=== PATIENT | male | born 1995 | race Caucasian/White ===

== ENCOUNTER 2024-09-29 19:59 | Emergency (ER) | payer OTHER, SELFPAY ==
--- OUTSIDE RECORDS SUMMARY | 2024-09-29 20:02 | XMS_ITS | Clinical Summary ---
Author Organization [facility] Address [address], [place] [address] Care Team Providers Care Rn Progressive Care Unit Name Role Phone Unavailable Primary Care Provider Unavailabl e Source Comments You are receiving this document as you are listed as the primary care provider,follow-up provider, or the patient has been referred to you for consultation.This is in compliance with the Medicare and[facility],which states Providers who transition their patient to another setting of careor provider of care or refers their patient to another provider of care shouldprovide summary care record for each transition of care or referral. [facility] Allergies Active Allergy Reactions Criticality Noted Date Comments Other 07/24/2003 PN: LW Other1: -nka Review Contrast Media 07/24/2003 PN: LW CM1: Contrast Adverse Reaction - None Reaction : Review Food Intolerance 07/24/2003 PN: LW FI1: nka Medications montelukast (SINGULAIR) 10 MG tabletIndications :Mild persistent asthma without complication (HRC),Allergic rhinitis, unspecified seasonality, unspecified trigger TAKE 1 TABLET BY MOUTH EVERY EVENING 90 Tablet 2 2 Active ALBUterol sulfate HFA 108 (90 Base) MCG/ACT inhalerIndication s:Mild persistent asthma without complication (HRC) INHALE 1-2 PUFFS EVERY 6 HOURS NEEDED FOR WHEEZING. 3 Each 3 Active Active Problems Problem Noted Date Diagnosed Date Asthma 02/12/2011 Overview (01/21/2017): Unspecified asthma(493.90) ([facility]) Asthma 11/16/2008 Overview (01/21/2017): LW Modifier: Trigger:Chlorine,URI,?smoke. ; Asthma Mild Intermittant Resolved Problems Problem Noted Date Diagnosed Date Resolved Date Varicella 05/29/2004 07/29/2004 Overview (01/21/2017): LW Modifier: [facility] - Paper Chart LW Onset: [id number] ; Varicella Zoster Immunizations Immunization Administration Dates Next Due DTP 04/06/1998 DTaP 2002,02/09/1998,1997 DTaP/Hib 01/17/1999 Flu Vac Preserv Free (3+yrs) 03/07/2010,03/12/20 09,07/20/2006 H1n1 Miv Sanofi 3+ Yr (Injected) 03/24/2009 HepA Ped/Adol (1-18 yrs) 08/30/2010,11/16/2008 HepA Ped/Adol 3 Dose Series (Not Used in [place]) 08/30/2010 HepB Adult (Engerix-B, 20+ y rs, 3 dose series) 08/03/1998,02/09/1998,1997 Hib (ActHIB) 04/06/1998,02/09/1998,1997 IPV (Polio) 2002, 9,02/09/1998,1997 Influenza (Fluzone 0.25, 6-35 mos) 03/28/2013 Influenza IIV4 (Quadrivalent ) 0.5mL (15649) 03/28/2013 Influenza, Unspecified Formulation 03/07/2010,,07/20/2006 MCV4 (Menactra) 11/16/2008 MMR 2002,01/17/1999 MPSV4 (Menomune) 11/16/2008 TDAP (BOOSTRIX) 11/16/2008 Varicella 05/14/2000 Family History Relation Name Status Comments Father Alive Mother Alive Social History Tobacco Use Types Packs/Day Years Used Date Smoking Tobacco: Never Smokeless Tobacco: Never Alcohol Use Standard Drinks/Week Comments Yes 0 (1 standard drink = 0.6 oz pur e alcohol) PHQ-2 Answer Date Recorded PHQ-2 Score 0 12/30/2021 Sex and Gender Information Value Date Recorded Sex Assigned at Not on file Legal Sex Male 10:32 AM CDT Gender Identity Not on file Sexual Orientation Not on file Last Filed Vital Signs Vital Sign Reading Time Taken Comments Blood Pressure 86/67 12/30/2021 6:06 PM CDT Pulse 70 12/30/2021 6:06 PM CDT Temperature 36.8 C (98.2 F) 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 Respiratory Rate 16 12/30/2021 6:06 PM CDT Oxygen Saturation 97% 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 Inhaled Oxygen Concentration - - Weight 95.3 kg (210 lb) 12/30/2021 6:06 PM CDT Height 186.7 cm (6' 1.5) 12/30/2021 6:06 PM CDT Body Mass Index 27.33 12/30/2021 6:06 PM CDT Plan of Treatment Health Maintenance Due Date Last Done Comments Hep C Screening (Preventive Services) 1997 Varicella Vaccine (2 of 2 - 2-dose childhood series) 2001 05/14/2000 HPV Vaccine (1 - Male 3-dose series) 2012 HIV Screening (Preventive Services) 2013 Pneumococcal Vaccine (1 of 2 - PCV) 2016 DTaP/Tdap/Td Vaccine (7 - Tdap) 11/16/2018 11/16/2008, 2002, 01/17/1999, Additional history exists Asthma ACT (score of 20 or higher) 08/01/2021 08/01/2020 Adult Preventive Visit 08/01/2022 08/01/2020 COVID-19 Vaccine ( season) 2024 Influenza Vaccine (Season Ended) 2025 03/28/2013, 03/28/2013, 03/07/2010, Additional history exists Zoster/Shingles Vaccine (1 of 2) 10/05/2047 HepB Vaccine Completed 08/03/1998, 01/30, 1997 Hib Vaccine Completed 01/17/1999, 10/1997, 02/09/1998, Additional history exists IPV (Polio) Vaccine Completed 2002, 01/17/1999, 02/09/1998, Additional history exists MCV4 Vaccine Aged Out 11/16/2008, 11/16/2008 No lo nger eligible based on patient's age to complete this topic HepA Vaccine Completed 08/30/2010, 11/16/2008 Meningococcal B Vaccine Aged Out No l onger eligible based on patient's age to complete this topic Insurance [facility]
[2024-09-29 20:05] VITALS: BP 127/73; PULSE 96; RESP 20; TEMP 38.1; O2SAT 92; BMI 25.7
[2024-09-29 20:15] VITALS: O2SAT 91
--- OUTSIDE RECORDS SUMMARY | 2024-09-29 20:43 | XMS_ITS | Clinical Summary ---
Author Organization [facility] Address [address], [place] [address] Care Team Providers Care Floral Specialist Name Role Phone Unavailable Primary Care Provider Unavailabl e Source Comments You are receiving this document as you are listed as the primary care provider,follow-up provider, or the patient has been referred to you for consultation.This is in compliance with the Medicare and[facility],which states Providers who transition their patient to another setting of careor provider of care or refers their patient to another provider of care shouldprovide summary care record for each transition of care or referral. [facility] Allergies Active Allergy Reactions Criticality Noted Date [...] Date Asthma 02/12/2011 Overview (01/21/2017): Unspecified asthma(493.90) ([facility]) Asthma 11/16/2008 Overview (01/21/2017): LW Modifier: Trigger:Chlorine,URI,?smoke. 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
[2024-09-29 20:54] LABS: Strep A DNA Probe* NOT DETECTED (Not Detectd)
--- NOTE | 2024-09-29 21:03 | CRLHL7_ITS ---
For Patients: As a result of the Cures Act, medical imaging exams and procedure reports are released immediately into your electronic medical record. You may view this report before your referring provider. If you have questions, please contact your health care provider. INDICATION: Cough, fever. TECHNIQUE: Chest radiographs, 2 views. COMPARISON: None. FINDINGS: Cardiovascular/Mediastinum: Normal heart size. Unremarkable. Lungs: No focal consolidation. Airways: Trachea remains midline. Pleura: No pleural effusions or pneumothorax. Bones: No acute osseous abnormalities. Upper abdomen: Unremarkable. IMPRESSION: No acute cardiopulmonary process. Dictated by Mau Esteves MD @ 09/29/2024 10:17:10 PM (Electronically Signed)
--- NOTE | 2024-09-29 21:04 | ED.GENADULT ---
HPI - General Adult General Chief complaint: Asthma Stated complaint: asthma, tight chest, hard to breathe Time Seen by Provider: 09/29/24 20:10 History of Present Illness HPI narrative: This 28-year-old male comes in reporting sore throat and some shortness of breath. These symptoms started 2 days ago. He was seen yesterday at a different emergency department and received nebulizer treatments and steroid dose. He went home with an inhaler and ongoing doses of steroid for 4 days. He comes in today stating that he his sore throat is worse. He does report a cough. He states that he feels short of breath with exertion. He arrives here with oximetry ranging from 92-94% on room air. He does arrive with a temperature at 100.6? F. Related Data Home Medications ?Medication ?Instructions ?Recorded ?Confirmed albuterol sulfate 90 mcg/actuation inhalation 09/29/24 aerosol inhaler prednisone 20 mg tablet 20 mg PO BID 09/29/24 09/29/24 Allergies Allergy/AdvReac Type Severity Reaction Status Date / Time No Known Drug Allergies Allergy Verified 09/29/24 20:05 Review of Systems Status of ROS: Reports: 10 or more systems reviewed and unremarkable except as noted in History and below Narrative: Constitutional: No fevers, no weight gain or loss. Eyes: No discharge. No vision changes. HENT: No congestion, no ear pain. He reports a sore throat. Cardiovascular: No chest pain, no palpitations. Respiratory: He reports a cough and shortness of breath. Gastrointestinal: No abdominal pain, no vomiting, no diarrhea. Genitourinary: No dysuria, no hematuria. Musculoskeletal: Normal range of motion. Skin: No rashes, no pruritis. Neurological: No dizziness, weakness, sensory change, speech change. Endo/Heme/Allergies: No bruising or bleeding. No polydipsia. Pysch: no suicidality, no anxiety, no insomnia. All other systems reviewed and are negative. PFSH PFSH Social History Smoking Status: Never smoker Do you use any of these nicotine containing products: None Non-prescribed substance use: denies use Exam Narrative: Exam Narrative: Constitutional: Well-developed, well-nourished, no acute distress. HEENT: Normocephalic, atraumatic. Neck: Normal range of motion. Nontender. Supple. Heart: Regular. No murmurs. Normal rate. Intact distal pulses. Lungs: Clear to auscultation. No chest discomfort. No wheezes, rhonchi, or rales. Abdomen: Normal bowel sounds. Nontender. No rebound tenderness. Genitalia: Deferred. Back: No midline tenderness. Normal range of motion. Extremities: Normal range of motion. No injury. Skin: Intact. No rash. Warm. No erythema or pallor. Neurologic: No altered sensation. No weakness. Alert and oriented. Psychiatric: No suicidality. No anxiety or depression. No insomnia. Nursing notes and vitals signs are reviewed. Const: Vital Signs, click to edit/add: Vital Signs - 24 hr 09/29/24 20:05 09/29/24 20:15 09/29/24 21:19 Temperature 100.6 F H Pulse Rate [Pulse Oximeter] 96 85 Respiratory Rate 20 18 Blood Pressure [Ri ght Upper Arm] 127/73 131/75 Pulse Oximetry 92 91 93 Oxygen Delivery Me thod Room Air Course Vital Signs Vital signs: Initial Vital Signs Temperature 100.6 F H 09/29/24 20:05 Temperature Source Temporal Artery Scan 09/29/24 20:05 Pulse Rate 96 09/29/24 20:05 Respiratory Rate 20 09/29/24 20:05 Blood Pressure 127/73 09/29/24 20:05 Blood Pressure Mean 91 09/29/24 20:05 Blood Pressure Position Sitting 09/29/24 20:05 Pulse Oximetry 92 09/29/24 20:05 Vital Signs Temperature 100.6 F H 09/29/24 20:05 Pulse Rate 96 09/29/24 20:05 Respiratory Rate 20 09/29/24 20:05 Blood Pressure 127/73 09/29/24 20:05 Pulse Oximetry 92 09/29/24 20:05 Temperature 100.6 F H 09/29/24 20:05 Pulse Rate 85 09/29/24 21:19 Respiratory Rate 18 09/29/24 21:19 Blood Pressure 131/75 09/29/24 21:19 Pulse Oximetry 93 09/29/24 21:19 Oxygen Delivery Method Room Air 09/29/24 21:19 Medical Decision Making MDM Narrative Medical decision making narrative: This patient has report of cough and shortness of breath and arrives with a low-grade fever at 100 point 6? F. He was seen yesterday in a different emergency department and received nebulizer treatments. He was sent home with steroid course for a few days and an albuterol inhaler. He states that he is using a spacer with his inhaler. He arrives here with oximetry at around 92-94% at rest on room air. I did obtain a chest x-ray which is negative for acute pulmonary disease. Additionally is swabs of his throat and nose are negative for strep and viruses tested. This patient is battling some kind of infection which may be a virus but given the negative testings and yet the decreased oximetry I did prescribe Augmentin with hopes that this may help him. I advised him regarding signs and symptoms that would indicate a need for return and re-evaluation. He did receive a DuoNeb treatment here. Lab Data Labs: Lab Results 09/29/24 Range/Units 20:10 SARS-CoV-2 (PCR) Negative SARS-CoV-2 (Negative) Influenza Type A (PCR) Negative PCR FLU A (Negative) Influenza Type B (PCR) Negative PCR FLU B (Negative) RSV (PCR) Negative PCR RSV (Negative) Group A Strep DNA NOT DETECTED (Not Detectd) Imaging Data Chest x-ray: Radiologist's impression: No acute cardiopulmonary process. Discharge Plan Discharge Clinical Impression: Acute lower respiratory infection Patient Disposition: Home, Self-Care Condition: Stable Additional Instructions: Continue with albuterol inhaler and steroid treatment as prescribed. Take Augmentin also as prescribed. Follow up with MD return if not improving or worsening symptoms occur. Prescriptions: No Action prednisone 20 mg tablet 20 mg PO BID albuterol sulfate 90 mcg/actuation HFA aerosol inhaler inhalation Follow Up/Referrals: Provider,Not a Local [Primary Care Provider] - Stand Alone Forms: All Copy Products Info Instructions
[2024-09-29 21:08] LABS: PCR FLU A Negative PCR FLU A (Negative); PCR FLU B Negative PCR FLU B (Negative); PCR RSV Negative PCR RSV (Negative); SARS PCR* Negative SARS-CoV-2 (Negative)
[2024-09-29 21:19] VITALS: BP 131/75; PULSE 85; RESP 18; O2SAT 93
[2024-09-29] MEDS: IPRAT-ALBUT 0.5-2.5 MG/3 ML NEB 1 NEB IH (22:47)
== END 2024-09-29 23:07 | disposition home or self-care (01) ==
PROVIDERS: Emergency Provider Emergency Medicine Emergency Medical Services
DX: J22 Unspecified acute lower respiratory infection (principal)
CPT/HCPCS: 71046; 87631; 87651; 94761; 99284